=== PATIENT | female | born 1955 | race Caucasian/White ===

== ENCOUNTER → 2018-01-14 | Day surgery (SDC) | payer OTHER ==
[~2018-01-14] VITALS: Ht 154.9 cm; Wt 65.9 kg
[~2018-01-14] MED LIST: FentaNYL CITRATE-PF 100 MCG/2 ML VIAL ONE; MIDAZOLAM HCL 2 MG/2 ML VIAL ONE; MethylPREDNISolone SOD SUCC 125 MG/2 ML VIAL IVP ONE; MethylPREDNISolone SOD SUCC 125 MG/2 ML VIAL ONE; OXYGEN THERAPY IH SCH; SODIUM CHLORIDE 0.9% 1,000 ML IV ONE
== END | disposition home or self-care (01) ==
LOC: SURGERY 06:28
PROVIDERS: ATTEND Internal Medicine Critical Care Medicine
DX: J38.4 Edema of larynx (principal); B37.0 Candidal stomatitis; I10 Essential (primary) hypertension; J45.998 Other asthma; Z90.710 Acquired absence of both cervix and uterus; Z90.49 Acquired absence of other specified parts of digestive tract; Z98.890 Other specified postprocedural states
CPT/HCPCS: 31623; 31624; 71045; 87015; 87070; 87206; 87220; 88108; 88312; J2250; J2930; J3010; J7030